=== PATIENT | female | born 1955 | race Caucasian/White ===

== ENCOUNTER → 2018-05-04 | Outpatient (CLI) | payer MEDICARE, MEDICAID ==
[2018-05-04 15:15] LABS: ABG BASE EXCESS -0.8 MMOL/L (-2.5-2.5); ABG OXYGEN SATURATION 99 % (94-100); ABG PCO2 32 MMHG (35-45); ABG PH 7.46 (7.37-7.43); ABG PO2 145 MMHG (79-93); ABG TCO2 23.9 MMOL/L (21.0-31.0)
[2018-05-04 15:16] LABS: ALLENS TEST YES-POS; INSPIRED O2 ROOM AIR; PATIENT TEMP 96.4; VENTILATOR NO
== END ==
LOC: RT 14:50
PROVIDERS: ATTEND Nurse Practitioner Family
DX: J44.9 Chronic obstructive pulmonary disease, unspecified (principal)
CPT/HCPCS: 36600; 82805